=== PATIENT | male | born 1995 | race Two or more races ===

== ENCOUNTER 2018-04-07 13:02 | Emergency (ER) | payer OTHER ==
[~2018-04-07] VITALS: Ht 185.4 cm; Wt 82.6 kg
[2018-04-07 13:09] VITALS: BP 105/75
[2018-04-07] MEDS ORDERED: IBUPROFEN 800 MG TAB PO ONE (14:45)
== END 2018-04-07 15:57 | disposition home or self-care (01) ==
LOC: ER 13:02
DX: S83.91XA Sprain of unspecified site of right knee, initial encounter (principal); X50.1XXA Overexertion from prolonged static or awkward postures, initial encounter; Y93.89 Activity, other specified; Y99.8 Other external cause status; Y92.89 Other specified places as the place of occurrence of the external cause
CPT/HCPCS: 73562

== ENCOUNTER 2018-06-23 09:06 | Emergency (ER) | payer OTHER, MEDICAID ==
[~2018-06-23] VITALS: Ht 182.9 cm; Wt 83.9 kg
[2018-06-23 09:19] VITALS: BP 122/57
== END 2018-06-23 10:32 | disposition home or self-care (01) ==
LOC: ER 09:07
DX: T81.30XA Disruption of wound, unspecified, initial encounter (principal); Y83.8 Other surgical procedures as the cause of abnormal reaction of the patient, or of later complication, without mention of misadventure at the time of the procedure; Y92.89 Other specified places as the place of occurrence of the external cause